=== PATIENT | female | born 1960 | race Caucasian/White ===

== ENCOUNTER → 2016-08-20 | Outpatient (CLI) | payer OTHER | LOC: FIMAGING 18:39 | PROVIDERS: ATTEND Family Medicine | DX: M50.20 Other cervical disc displacement, unspecified cervical region (principal); M99.71 Connective tissue and disc stenosis of intervertebral foramina of cervical region; M89.38 Hypertrophy of bone, other site; M25.78 Osteophyte, vertebrae ==